=== PATIENT | male | born 1985 | race Caucasian/White ===

== ENCOUNTER 2020-04-18 07:09 | Outpatient (REF) | payer OTHER, SELFPAY ==
[2020-04-18 07:42] LABS: COVID-19 Test Negative (Negative)
== END 2020-04-18 07:10 | disposition home or self-care (01) ==
LOC: HO.LAB 07:09
PROVIDERS: Visit Provider Internal Medicine
DX: Z20.828 Contact with and (suspected) exposure to other viral communicable diseases (principal)
CPT/HCPCS: 87635; C9803

== ENCOUNTER → 2021-11-09 12:56 | Outpatient (BNVA) | payer OTHER, SELFPAY | PROVIDERS: Visit Provider Internal Medicine | DX: S20.224A Contusion of middle back wall of thorax, initial encounter (principal); S31.010A Laceration without foreign body of lower back and pelvis without penetration into retroperitoneum, initial encounter; W11.XXXA Fall on and from ladder, initial encounter | CPT/HCPCS: 12002; 72070; 99203 ==

== ENCOUNTER → 2021-11-13 09:30 | Outpatient (BNVA) | payer OTHER, SELFPAY | PROVIDERS: Visit Provider Internal Medicine | DX: S31.010A Laceration without foreign body of lower back and pelvis without penetration into retroperitoneum, initial encounter (principal); W11.XXXA Fall on and from ladder, initial encounter | CPT/HCPCS: 99213 ==

== ENCOUNTER → 2021-11-17 10:05 | Outpatient (BNVA) | payer OTHER, SELFPAY | PROVIDERS: Visit Provider Internal Medicine | DX: S20.224A Contusion of middle back wall of thorax, initial encounter (principal); S31.010A Laceration without foreign body of lower back and pelvis without penetration into retroperitoneum, initial encounter; W11.XXXA Fall on and from ladder, initial encounter | CPT/HCPCS: 99212; 99213 ==